=== PATIENT | male | born 1950 | race Caucasian/White ===

== ENCOUNTER 2017-06-24 11:28 | Emergency (ER) | payer MEDICARE, MEDICAID ==
[~2017-06-24] VITALS: Ht 162.6 cm; Wt 78.2 kg
[~2017-06-24 11:28] MED LIST: ABILIFY15 M1 PO; AMANTADINE HCL100 M1 PO; AMLODIPINE BESY10 M1 PO; ATIVAN1 MG PO; BUS10 PO; COG1 PO; COLACE100 MG PO; GLYCOPYRROLATE2 MG PO; LAC PO; MAC100 PO; MIRALAX17 GM/Dose PO; MOT400 PO; MULTI VITAMINS1 TA1 PO; NEXIUM PO; NOR5 PO; NORCO1 TA2 PO; POLYETHYLENE GLY PO; PROAIR HFA0.09 MG/A1 INH; RES15 PO; RESTORIL15 MG PO; RESTORIL30 MG PO; ROB1 PO; SYN112 PO; THERAPEUTIC M; VIA PO; ZOC20 PO; [UNRECOGNIZED DRUG - CODE] PO; [UNRECOGNIZED DRUG - OTHER] PO
[2017-06-24 11:56] VITALS: Ht 162.6 cm; Wt 78.2 kg
[2017-06-24 13:44] LABS: CALCIUM 9.3 mg/dL (8.5-10.1); CARBON DIOXIDE 33.1 mmol/L (21-32); CHLORIDE SERUM 94 mmol/L (98-107); CREATININE SERUM 0.8 mg/dL (0.7-1.3); GFR1 > 60 mL/min; GLUCOSE SERUM 99 mg/dL (74-106); POTASSIUM SERUM 3.9 mmol/L (3.5-5.1); SODIUM SERUM 130 mmol/L (136-145)
[2017-06-24 13:46] LABS: BASOPHIL % 0.5 % (0-2); PLATELET COUNT 139 x10^3mcL (130-400)
[2017-06-24 13:48] LABS: ALBUMIN 3.8 g/dL (3.4-5.0); ALKALINE PHOSPHATASE 112 U/L (46-116); ALT/SGPT 39 U/L (16-63); AST/SGOT 23 U/L (15-37); BILIRUBIN TOTAL 0.32 mg/dL (0.20-1.00)
[2017-06-24 14:19] LABS: RED CELL DISTRIBUTION WIDTH 15.4 % (11.5-14.5)
[2017-06-24 15:13] VITALS: BP 178/87
== END 2017-06-24 15:13 | disposition home or self-care (01) ==
LOC: ED 11:28
PROVIDERS: Emergency Medicine
DX: R60.0 Localized edema (principal); I73.9 Peripheral vascular disease, unspecified; K44.9 Diaphragmatic hernia without obstruction or gangrene; I10 Essential (primary) hypertension; E78.00 Pure hypercholesterolemia, unspecified; F20.9 Schizophrenia, unspecified
CPT/HCPCS: 36415; 83880; Q0092

== ENCOUNTER 2017-08-10 10:46 | Inpatient (IN) | payer MEDICAID, MEDICARE ==
[~2017-08-10] VITALS: Ht 162.6 cm; Wt 76.3 kg
[~2017-08-10 10:46] MED LIST changes: -AMLODIPINE BESY10 M1 PO; -RESTORIL30 MG PO
[2017-08-10 15:08] LABS: BASOPHIL % 0.3 % (0-2); PLATELET COUNT 147 x10^3mcL (130-400)
[2017-08-10 15:09] LABS: RED CELL DISTRIBUTION WIDTH 16.4 % (11.5-14.5)
[2017-08-10 15:34] LABS: CALCIUM 8.9 mg/dL (8.5-10.1); CARBON DIOXIDE 29.1 mmol/L (21-32); CHLORIDE SERUM 103 mmol/L (98-107); CREATININE SERUM 0.9 mg/dL (0.7-1.3); GFR1 > 60 mL/min; GLUCOSE SERUM 91 mg/dL (74-106); POTASSIUM SERUM 3.9 mmol/L (3.5-5.1); SODIUM SERUM 143 mmol/L (136-145)
[2017-08-10 15:42] LABS: ALBUMIN 3.6 g/dL (3.4-5.0); ALKALINE PHOSPHATASE 122 U/L (46-116); ALT/SGPT 33 U/L (16-63); AMYLASE 39 U/L (25-115); AST/SGOT 21 U/L (15-37); BILIRUBIN TOTAL 0.3 mg/dL (0.20-1.00); CHOLESTEROL 190 mg/dL (<200); HDL CHOLESTEROL 60 mg/dL (40-60); LIPASE 80 IU/L (73-393); MAGNESIUM 1.6 mg/dL (1.8-2.4); T4(THYROXINE) 12.5 ug/dL (4.7-13.3); TOTAL PROTEIN, SERUM 7.8 g/dL (6.4-8.2)
[2017-08-10 19:15] LABS: CHOLESTEROL/HDL RATIO 3.3
[2017-08-10 19:24] LABS: FREE T4 1.35 ng/dL (0.76-1.46)
[2017-08-10 19:28] LABS: T3 TOTAL 1.51 ng/mL
[2017-08-10 19:41] VITALS: BP 178/99
[2017-08-10 19:45] LABS: FREE THYROXINE INDEX 4.8 ug/dL (1.4-4.5); T4(THYROXINE) 13.4 ug/dL (4.7-13.3)
[2017-08-10] MEDS ORDERED: CLONAZEPAM0.5 MG PO (22:16)
[2017-08-10] MEDS ORDERED: LINZESS290 MCG PO (22:54)
[2017-08-10] MEDS ORDERED: GOOD SENSE OMEP20 MG PO (22:54)
[2017-08-10] MEDS ORDERED: COZAAR100 MG PO (22:56)
[2017-08-10] MEDS ORDERED: CLARITIN10 MG PO (22:58)
[2017-08-10] MEDS ORDERED: DEPAKOTE500 MG PO (23:00)
[2017-08-10] MEDS ORDERED: LACTULOSE10 GM/152 PO (23:03)
[2017-08-11 02:41] VITALS: BP 131/69
[2017-08-11 05:34] VITALS: BP 155/98
[2017-08-11 06:13] LABS: BASOPHIL % 0.3 % (0-2); PLATELET COUNT 140 x10^3mcL (130-400)
[2017-08-11 06:19] LABS: CALCIUM 9.1 mg/dL (8.5-10.1); CARBON DIOXIDE 27.3 mmol/L (21-32); CHLORIDE SERUM 102 mmol/L (98-107); GFR1 > 60 mL/min; GLUCOSE SERUM 86 mg/dL (74-106); POTASSIUM SERUM 3.7 mmol/L (3.5-5.1); SODIUM SERUM 139 mmol/L (136-145)
[2017-08-11 06:24] LABS: RED CELL DISTRIBUTION WIDTH 16.7 % (11.5-14.5)
[2017-08-11 08:27] LABS: UA SPECIFIC GRAVITY 1.015 (1.005-1.035); microscopic required? YES; urine erythrocyte 2+ (NEGATIVE)
[2017-08-11 08:37] LABS: AMPHETAMINE QUAL UR NONE DETECTED (See below)
[2017-08-11 08:43] VITALS: BP 150/78; BP 180/78
[2017-08-11 13:40] VITALS: BP 147/88
[2017-08-11 18:10] VITALS: BP 129/75
[2017-08-11 19:43] VITALS: Ht 162.6 cm; Wt 76.3 kg
[2017-08-11 20:24] VITALS: BP 147/65
[2017-08-12 05:06] VITALS: BP 121/68
[2017-08-12 06:16] LABS: MAGNESIUM 1.9 mg/dL (1.8-2.4); PHOSPHOROUS 3.1 mg/dL (2.5-4.9)
[2017-08-12 06:25] LABS: BASOPHIL % 0.2 % (0-2)
[2017-08-12 06:34] LABS: PLATELET COUNT 128 x10^3mcL (130-400); RED CELL DISTRIBUTION WIDTH 16.9 % (11.5-14.5)
[2017-08-12 09:23] VITALS: BP 125/61
[2017-08-12 13:02] VITALS: BP 125/61
[2017-08-12 13:39] VITALS: BP 147/94
[2017-08-12] MEDS ORDERED: KEFLEX500 M1 PO (14:25)
== END 2017-08-12 15:15 | DRG 501 ==
LOC: ED 10:46 → DU 17:52
PROVIDERS: Emergency Medicine; Internal Medicine
DX: N41.0 Acute prostatitis (principal); F73 Profound intellectual disabilities; E83.42 Hypomagnesemia; N39.0 Urinary tract infection, site not specified; R06.03 Acute respiratory distress; G80.8 Other cerebral palsy; F25.9 Schizoaffective disorder, unspecified; F79 Unspecified intellectual disabilities; Q90.9 Down syndrome, unspecified; R32 Unspecified urinary incontinence; I10 Essential (primary) hypertension; E03.9 Hypothyroidism, unspecified; E78.5 Hyperlipidemia, unspecified; Z68.26 Body mass index [BMI] 26.0-26.9, adult; Z99.3 Dependence on wheelchair
CPT/HCPCS: 82962; 83880; 84439; 92526-GN; 92610-GN; 97110-GP; 97530-GP; G0480; J0696; J2060; J3475; J3535; J7030; Q0092

== ENCOUNTER 2017-09-14 17:58 | Inpatient (IN) | payer MEDICAID, MEDICARE ==
[~2017-09-14] VITALS: Ht 157.5 cm; Wt 83.7 kg
[~2017-09-14 17:58] MED LIST changes: +CLARITIN10 MG PO; +CLONAZEPAM0.5 MG PO; +COZAAR100 MG PO; +DEPAKOTE500 MG PO; +GOOD SENSE OMEP20 MG PO; +KEFLEX500 M1 PO; +LACTULOSE10 GM/152 PO; +LINZESS290 MCG PO
[2017-09-14 18:24] VITALS: BP 129/65
[2017-09-14 20:32] VITALS: BP 127/76
[2017-09-14 20:45] LABS: RED BLOOD CELLS 3.59 M/mm3 (4.52-5.90)
[2017-09-14 20:47] LABS: IRON 35 ug/dL (65-170); TOTAL IRON BINDING CAPACITY 244 ug/dL (250-450)
[2017-09-14 23:33] LABS: microscopic required? YES; urine erythrocyte 2+ (NEGATIVE)
[2017-09-15 05:14] VITALS: BP 142/76
[2017-09-15 06:26] LABS: CALCIUM 8.4 mg/dL (8.5-10.1); CARBON DIOXIDE 26.4 mmol/L (21-32); CHLORIDE SERUM 99 mmol/L (98-107); CREATININE SERUM 0.9 mg/dL (0.7-1.3); GFR1 > 60 mL/min; GLUCOSE SERUM 93 mg/dL (74-106); MAGNESIUM 1.6 mg/dL (1.8-2.4); PHOSPHOROUS 3.2 mg/dL (2.5-4.9); POTASSIUM SERUM 3.7 mmol/L (3.5-5.1); SODIUM SERUM 133 mmol/L (136-145)
[2017-09-15 06:41] LABS: PLATELET COUNT 94 x10^3mcL (130-400); RED CELL DISTRIBUTION WIDTH 16.9 % (11.5-14.5)
[2017-09-15 09:05] VITALS: BP 115/66
[2017-09-15 09:45] LABS: BAND NEUTROPHIL 22 % (0-10); BASOPHIL 0 % (0-2); METAMYELOCTE 2 % (0-2); MONOCYTE 12 % (0-7); MYELOCYTE 1 % (0-2); SEGMENTED NEUTROPHILS 55 % (37-75)
[2017-09-15 09:46] LABS: PLATELET MORPHOLOGY LARGE PLATELET SEEN; rbc morphology (normal/abnorm) ABNORMAL (NORMAL); tear drop cell (dacryocyte) 1+
[2017-09-15 16:13] LABS: T3 TOTAL 0.71 ng/mL
[2017-09-15 16:29] LABS: FREE T4 1.1 ng/dL (0.76-1.46); FREE THYROXINE INDEX 2.5 ug/dL (1.4-4.5); T4(THYROXINE) 7.2 ug/dL (4.7-13.3)
[2017-09-15 17:01] VITALS: BP 134/76
[2017-09-15 20:45] VITALS: BP 126/78
[2017-09-16 06:13] VITALS: BP 143/99
[2017-09-16 06:41] LABS: CALCIUM 8.2 mg/dL (8.5-10.1); CHLORIDE SERUM 101 mmol/L (98-107); CREATININE SERUM 0.7 mg/dL (0.7-1.3); GFR1 > 60 mL/min; GLUCOSE SERUM 93 mg/dL (74-106); MAGNESIUM 1.8 mg/dL (1.8-2.4); POTASSIUM SERUM 3.6 mmol/L (3.5-5.1); SODIUM SERUM 136 mmol/L (136-145)
[2017-09-16 07:18] LABS: PLATELET COUNT 111 x10^3mcL (130-400); RED CELL DISTRIBUTION WIDTH 16.4 % (11.5-14.5)
[2017-09-16 09:29] VITALS: BP 121/54
[2017-09-16 10:02] LABS: BAND NEUTROPHIL 10 % (0-10); BASOPHIL 0 % (0-2); MONOCYTE 25 % (0-7); SEGMENTED NEUTROPHILS 52 % (37-75)
[2017-09-16 10:16] LABS: PLATELET MORPHOLOGY PLATELETS DECREASED; rbc morphology (normal/abnorm) ABNORMAL (NORMAL); tear drop cell (dacryocyte) 1+
[2017-09-16] MEDS ORDERED: BACTRIM DS1 TAB PO (10:30)
[2017-09-16 11:47] VITALS: BP 121/54
[2017-09-29 13:47] VITALS: Ht 157.5 cm; Wt 83.7 kg
== END 2017-09-16 13:30 | DRG 463 ==
LOC: MU 17:58 → DU 17:58 → MU 09-15 07:05
PROVIDERS: Family Medicine
DX: N39.0 Urinary tract infection, site not specified (principal); N17.0 Acute kidney failure with tubular necrosis; G93.41 Metabolic encephalopathy; D69.6 Thrombocytopenia, unspecified; N18.3 Chronic kidney disease, stage 3 (moderate); E83.42 Hypomagnesemia; E87.1 Hypo-osmolality and hyponatremia; B96.20 Unspecified Escherichia coli [E. coli] as the cause of diseases classified elsewhere; R80.9 Proteinuria, unspecified; G80.9 Cerebral palsy, unspecified; I10 Essential (primary) hypertension; Q90.9 Down syndrome, unspecified; F79 Unspecified intellectual disabilities; D64.9 Anemia, unspecified; E03.9 Hypothyroidism, unspecified; Z99.3 Dependence on wheelchair; Z16.12 Extended spectrum beta lactamase (ESBL) resistance; Z16.24 Resistance to multiple antibiotics
CPT/HCPCS: 83880; 84439; 92610; J0696; J3475; J3535; J7030

== ENCOUNTER → 2017-12-14 | Outpatient (CLI) | payer MEDICARE, MEDICAID ==
[~2017-12-14] MED LIST changes: +BACTRIM DS1 TAB PO
== END | disposition home or self-care (01) ==
LOC: US 11-28 09:30 → RD 12-09 10:00 → US 08:40
PROC: BT43ZZZ Ultrasonography of Bilateral Kidneys (ICD-10-PCS; principal; 2017-12-14)
DX: N39.0 Urinary tract infection, site not specified (principal); R13.10 Dysphagia, unspecified

== ENCOUNTER 2018-01-09 18:25 | Emergency (ER) | payer MEDICARE, MEDICAID ==
[~2018-01-09] VITALS: Ht 160 cm; Wt 75.7 kg
[2018-01-09 23:25] LABS: UA SPECIFIC GRAVITY 1.025 (1.005-1.035); microscopic required? YES; urine erythrocyte NEGATIVE (NEGATIVE)
[2018-01-10 01:50] VITALS: BP 108/73
== END 2018-01-10 01:50 | disposition home or self-care (01) ==
LOC: ED 18:25
PROVIDERS: Emergency Medicine
DX: F79 Unspecified intellectual disabilities (principal); N39.0 Urinary tract infection, site not specified; I10 Essential (primary) hypertension
CPT/HCPCS: J0696; J2060

== ENCOUNTER 2018-02-12 03:11 | Inpatient (IN) | payer MEDICAID, MEDICARE ==
[~2018-02-12] VITALS: Ht 167.6 cm; Wt 69.4 kg
[2018-02-12] VITALS (10 sets, daily range): BP systolic 60–129; BP diastolic 23–89; Ht 167.6 cm; Wt 69.4 kg
[2018-02-12 04:23] LABS: BILIRUBIN TOTAL 0.1 mg/dL (0.20-1.00); CARBON DIOXIDE 27.7 mmol/L (21-32); POTASSIUM SERUM 4.2 mmol/L (3.5-5.1); TOTAL PROTEIN, SERUM 7.7 g/dL (6.4-8.2)
[2018-02-12 04:26] LABS: ALBUMIN 2.5 g/dL (3.4-5.0)
[2018-02-12 04:28] LABS: CREATININE SERUM 5.1 mg/dL (0.7-1.3)
[2018-02-12 04:44] LABS: PLATELET COUNT 116 x10^3mcL (130-400); RED CELL DISTRIBUTION WIDTH 18.2 % (11.5-14.5)
[2018-02-12 04:58] LABS: BAND NEUTROPHIL 22 % (0-10); BASOPHIL 0 % (0-2); MONOCYTE 8 % (0-7); SEGMENTED NEUTROPHILS 48 % (37-75); rbc morphology (normal/abnorm) ABNORMAL (NORMAL)
[2018-02-12 04:59] LABS: PLATELET MORPHOLOGY PLATELETS DECREASED
[2018-02-12] MEDS ORDERED: GOODSENSE100 MG/5 M PO (06:55)
[2018-02-12] MEDS ORDERED: [UNRECOGNIZED DRUG - CODE] PO (06:56)
[2018-02-12] MEDS ORDERED: VENTOLIN H0.09 MG/A1 IH (06:57)
[2018-02-12] MEDS ORDERED: BACITRACIN-NEO-1 OIN TP (06:57)
[2018-02-12] MEDS ORDERED: PROMETHAZI6.25 MG/5 PO (06:58)
[2018-02-12] MEDS ORDERED: SIMVASTATIN40 M1 PO (07:00)
[2018-02-12] MEDS ORDERED: RESTORIL15 MG PO (07:00)
[2018-02-12] MEDS ORDERED: CLONAZEPAM0.5 MG PO (07:00)
[2018-02-12] MEDS ORDERED: AMLODIPINE BESYL5 M2 PO (07:01)
[2018-02-12] MEDS ORDERED: LOSARTAN POTAS100 M1 PO (07:01)
[2018-02-12] MEDS ORDERED: MICROZIDE12.5 MG PO (07:02)
[2018-02-12] MEDS ORDERED: SYM100 PO (07:02)
[2018-02-12] MEDS ORDERED: COG1 PO (07:02)
[2018-02-12] MEDS ORDERED: DEPAKOTE500 MG PO (07:02)
[2018-02-12] MEDS ORDERED: PRILOSEC OTC20 M1 PO (07:03)
[2018-02-12] MEDS ORDERED: LINZESS290 MCG PO (07:03)
[2018-02-12] MEDS ORDERED: SYNTHROID0.112 MG PO (07:03)
[2018-02-12] MEDS ORDERED: ABILIFY20 M1 PO (07:04)
[2018-02-12] MEDS ORDERED: SILVADENE1% TOP (07:04)
[2018-02-12] MEDS ORDERED: MIRALAX17 GM/Dose PO (07:05)
[2018-02-12] MEDS ORDERED: LACTULOSE10 GM/152 PO (07:05)
[2018-02-12 08:43] LABS: PHOSPHOROUS 5.7 mg/dL (2.5-4.9)
[2018-02-12 08:46] LABS: CHOLESTEROL/HDL RATIO 3.1
[2018-02-12 13:16] LABS: BILIRUBIN TOTAL 0.27 mg/dL (0.20-1.00); CALCIUM 7.8 mg/dL (8.5-10.1); CARBON DIOXIDE 16.9 mmol/L (21-32)
[2018-02-12 13:17] LABS: ALBUMIN 2.1 g/dL (3.4-5.0); TOTAL PROTEIN, SERUM 5.8 g/dL (6.4-8.2)
[2018-02-12 13:19] LABS: POTASSIUM SERUM 2.1 mmol/L (3.5-5.1)
[2018-02-12 13:20] LABS: CREATININE SERUM 4.7 mg/dL (0.7-1.3)
== END 2018-02-12 21:18 | disposition expired | DRG 720 ==
LOC: ED 03:11 → IC 06:14
PROVIDERS: Emergency Medicine; ADMIT Family Medicine
PROC: 5A1935Z Respiratory Ventilation, Less than 24 Consecutive Hours (ICD-10-PCS; principal; 2018-02-12)
PROC: 0BH17EZ Insertion of Endotracheal Airway into Trachea, Via Natural or Artificial Opening (ICD-10-PCS; 2018-02-12)
PROC: 05H633Z Insertion of Infusion Device into Left Subclavian Vein, Percutaneous Approach (ICD-10-PCS; 2018-02-12)
DX: A41.9 Sepsis, unspecified organism (principal); J96.01 Acute respiratory failure with hypoxia; N17.0 Acute kidney failure with tubular necrosis; E43 Unspecified severe protein-calorie malnutrition; R65.21 Severe sepsis with septic shock; I47.2 Ventricular tachycardia; K85.90 Acute pancreatitis without necrosis or infection, unspecified; J18.9 Pneumonia, unspecified organism; E87.0 Hyperosmolality and hypernatremia; F72 Severe intellectual disabilities; E83.39 Other disorders of phosphorus metabolism; E83.41 Hypermagnesemia; Q90.9 Down syndrome, unspecified; G80.9 Cerebral palsy, unspecified; F25.9 Schizoaffective disorder, unspecified; R13.11 Dysphagia, oral phase; E86.0 Dehydration; I12.9 Hypertensive chronic kidney disease with stage 1 through stage 4 chronic kidney disease, or unspecified chronic kidney disease; N18.9 Chronic kidney disease, unspecified; Z68.23 Body mass index [BMI] 23.0-23.9, adult
CPT/HCPCS: 36600; 82962; 83880; 87804; A4628; C1729; J0282; J1644; J2370; J2405; J2543; J2704; J3370; J3480; J3490; J7030; J7040; J7050; J7613; J7644; P9047; Q0092